=== PATIENT | male | born 1965 | race Caucasian/White ===

== ENCOUNTER 2023-02-17 09:38 | Emergency (ER) | payer BC ==
[~2023-02-17] VITALS: Ht 167.6 cm; Wt 69.0 kg
[2023-02-17 10:10] LABS: BILIRUBIN, URINE NEGATIVE (negative); BLOOD/HGB, URINE TRACE-I (Negative); KETONE, URINE NEGATIVE (Negative); LEUK ESTERASE, URINE NEGATIVE (negative); NITRITE, URINE NEGATIVE (negative); PH, URINE 5.5 (5-7)
[2023-02-17 10:29] LABS: BASOPHILS 0.8 % (0-2); EOSINOPHILS 0.5 % (0-6); HEMATOCRIT 42.5 % (35.0-50.0); LYMPHOCYTES 17.2 % (24-44); MONOCYTES 6.5 % (0-12); PLATELET COUNT 279 K/uL (140-440); RBC 4.67 M/ul (4.3-5.7); RDW 14.5 (10.5-15.0)
[2023-02-17 10:35] LABS: RED BLOOD CELLS, URINE 0-1 /hpf (0-5); WHITE BLOOD CELLS, URINE 0-1 /HPF (0-5)
[2023-02-17 10:36] LABS: EPITHELIAL CELLS, URINE SQUAMOUS 1+ /lpf (0-1+); REFLEX CULTURE, URINE No (No)
[2023-02-17 10:46] LABS: ALBUMIN 3.9 g/dL (3.4-5.0); ALBUMIN/GLOBULIN RATIO 1.39 (1.1-2.4); BILIRUBIN, TOTAL 0.5 ng/dL (0.2-1.0); CALCIUM 8.9 mg/dL (8.5-10.1); CREATININE, SERUM 0.96 mg/dL (0.70-1.30); PROTEIN, TOTAL 6.7 g/dL (6.4-8.2)
[2023-02-17] MEDS ORDERED: HYDROCODON-ACE1 EA11 PO (11:28)
[2023-02-17] MEDS ORDERED: FLOMAX0.4 MG PO (11:28)
[2023-02-17] MEDS ORDERED: ONDANSETRON ODT8 MG PO (11:28)
[2023-02-17 11:44] VITALS: BP 139/85
== END 2023-02-17 11:44 | disposition home or self-care (01) ==
LOC: ED 09:38
PROVIDERS: Emergency Medicine
DX: N20.1 Calculus of ureter (principal)
CPT/HCPCS: 36415; 80053; 81001; 85025; 96374; 99284-25; A9270; J2405

== ENCOUNTER 2023-02-20 11:32 | Emergency (ER) | payer BC ==
[~2023-02-20] VITALS: Ht 167.6 cm; Wt 66.7 kg
[~2023-02-20 11:32] MED LIST: FLOMAX0.4 MG PO; HYDROCODON-ACE1 EA11 PO; ONDANSETRON ODT8 MG PO
--- OUTSIDE RECORDS SUMMARY | 2023-02-20 11:34 | XMS ---
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 [facility] VISIT COUNT (12 MO.) [address] TOTAL 3 NOTE: Visits indicate total known visits. ED/UCC VISIT TRACKING (12 MO.) 02/20/2023 11:33 [facility] TYPE: Emergency COMPLAINT: - L FLANK PAIN 02/17/2023 09:39 [facility] TYPE: Emergency COMPLAINT: - L FLANK PAIN DIAGNOSES: - Calculus of kidney - Unspecified abdominal pain 02/17/2023 08:37 [facility] TYPE: Emergency COMPLAINT: - KIDNEY STONE DIAGNOSES: - KIDNEY STONE INPATIENT VISIT TRACKING (12 MO.) No inpatient visits to display in this time frame [email or web address]
[2023-02-20 14:41] LABS: BASOPHILS 0.3 % (0-2); HEMATOCRIT 42.5 % (35.0-50.0); HEMOGLOBIN 14.1 g/dL (12.0-18.0); LYMPHOCYTES 5.9 % (24-44); MCH 30.2 (27-36); MCHC 33.1 g/dl (30-36); MCV 91.1 fl (81-99); MONOCYTES 3.1 % (0-12); NEUTROPHILS 90.7 % (39-80); PLATELET COUNT 279 K/uL (140-440); RBC 4.66 M/ul (4.3-5.7); RDW 14.6 (10.5-15.0)
[2023-02-20 14:54] LABS: ALBUMIN 3.9 g/dL (3.4-5.0); ALBUMIN/GLOBULIN RATIO 1.15 (1.1-2.4); ANION GAP 12.2 (7-21); BILIRUBIN, TOTAL 0.4 ng/dL (0.2-1.0); BUN/CREATININE RATIO 28.82 (6.0-28.6); CALCIUM 9.2 mg/dL (8.5-10.1); CREATININE, SERUM 1.11 mg/dL (0.70-1.30); POTASSIUM 4.2 mmol/L (3.5-5.1); PROTEIN, TOTAL 7.3 g/dL (6.4-8.2)
[2023-02-20] MEDS ORDERED: PROMETHAZINE HC25 M1 PO (17:57)
[2023-02-20] MEDS ORDERED: OXYCODONE HCL10 MG PO (17:57)
[2023-02-20 18:17] VITALS: BP 135/78
== END 2023-02-20 18:18 | disposition home or self-care (01) ==
LOC: ED 11:32
PROVIDERS: Emergency Medicine
DX: N13.2 Hydronephrosis with renal and ureteral calculous obstruction (principal)
CPT/HCPCS: 36415; 74176; 80053; 85025; 96361; 96374; 96375; 96376; 99284-25; A9270; J1170; J1885; J2405; J7030